=== PATIENT | male | born 1950 | race Caucasian/White ===

== ENCOUNTER 2021-08-30 07:06 | Observation (INO) | payer OTHER ==
[~2021-08-30] VITALS: Ht 180.3 cm; Wt 71.2 kg
[2021-08-30 08:19] LABS: HEMOGLOBIN 16.3 gm/dl (14.0-17.5); RED BLOOD COUNT 5.56 M/UL (4.20-5.50); WHITE BLOOD COUNT 12.8 K/UL (4.5-11.0)
[2021-08-30 08:51] LABS: BUN/CREATININE RATIO 28 (0-10)
[2021-08-30] MEDS ORDERED: LANTUS SOL100 UNIT/1 SQ (13:51)
[2021-08-30] MEDS ORDERED: CARVEDILOL25 MG PO (13:52)
[2021-08-30] MEDS ORDERED: AMLODIPINE BESY10 MG PO (13:52)
[2021-08-30] MEDS ORDERED: DIFLUPREDNATE5 ML OD (13:53)
[2021-08-30] MEDS ORDERED: GLIPIZIDE10 MG PO (13:53)
[2021-08-30] MEDS ORDERED: METFORMIN HCL1000 MG PO (13:54)
[2021-08-30] MEDS ORDERED: CHLORTHALIDONE25 MG PO (13:54)
[2021-08-30] MEDS ORDERED: PRAVASTATIN SOD40 MG PO (13:55)
[2021-08-30] MEDS ORDERED: TRULICITY3 MG/0.5 M SQ (13:56)
[2021-08-30] MEDS ORDERED: ENALAPRIL MALEA20 MG PO (13:56)
[2021-08-30] MEDS ORDERED: NITRO-TIME2.5 MG PO (13:57)
[2021-08-31 03:12] LABS: HEMOGLOBIN 14.8 gm/dl (14.0-17.5)
[2021-08-31 03:13] LABS: RED BLOOD COUNT 4.83 M/UL (4.20-5.50); WHITE BLOOD COUNT 9.2 K/UL (4.5-11.0)
[2021-08-31 03:34] LABS: BUN/CREATININE RATIO 32 (0-10)
== END 2021-08-31 14:01 | disposition home or self-care (01) ==
LOC: ER1 07:06 → CDU 10:47 → PROG CARE 10:47 → CDU 10:47 → PROG CARE 15:06
PROVIDERS: Emergency Medicine; Physician Assistant Medical; ADMIT Internal Medicine
DX: E11.649 Type 2 diabetes mellitus with hypoglycemia without coma (principal); T68.XXXA Hypothermia, initial encounter; I10 Essential (primary) hypertension; I25.10 Atherosclerotic heart disease of native coronary artery without angina pectoris; E87.6 Hypokalemia; F17.210 Nicotine dependence, cigarettes, uncomplicated; Z95.5 Presence of coronary angioplasty implant and graft
CPT/HCPCS: 36415; 71045; 80048; 80053; 81001; 82550; 82553; 82962; 83036; 83735; 84132; 84484; 85025; 85027; 87040; 93005; 96374; 96376; 99285; G0378; J3475